=== PATIENT | female | born 1965 | race Caucasian/White ===

== ENCOUNTER 2022-02-03 07:57 | Outpatient (CLI) | payer BC, SELFPAY ==
[2022-02-03 14:03] LABS: Albumin* 4.3 g/dL (3.3-5.0)
[2022-02-03 14:04] LABS: Chloride* 108 mmol/L (96-114); Sodium* 139 mmol/L (135-149)
[2022-02-03 14:06] LABS: Aspartate Amino Transferase* 35 U/L (12-35); Bilirubin Total* 0.8 mg/dL (0.1-1.5); Carbon Dioxide* 27 mmol/L (20-32); Cholesterol* 220 mg/dL (90-199); Creatinine* 0.6 mg/dL (0.5-1.5); Estimated Glomerular Filt Rate 103 ml/min; Total Protein* 6.9 g/dL (6.0-8.3)
[2022-02-03 14:07] LABS: Alanine Aminotransferase* 25 U/L (4-35); Alkaline Phosphatase* 86 U/L (40-150); Blood Urea Nitrogen* 19 mg/dL (7-30); Calcium* 9.1 mg/dL (8.4-10.6); Glucose* 92 mg/dL (60-115); HDL Cholesterol* 52 mg/dL (>=50); LDL Cholesterol Calculated 147 mg/dL (<100); Triglycerides* 105 mg/dL (40-149)
== END 2022-02-03 07:58 | disposition home or self-care (01) ==
PROVIDERS: PCP Physician Assistant Medical; Visit Provider Family Medicine
DX: Z01.419 Encounter for gynecological examination (general) (routine) without abnormal findings (principal); Z13.6 Encounter for screening for cardiovascular disorders
CPT/HCPCS: 80053; 80061

== ENCOUNTER 2022-02-12 14:48 | Outpatient (CLI) | payer BC, SELFPAY ==
--- NOTE | 2022-02-12 15:00 | CRLHL7_ITS ---
For Patients: As a result of the Century Cures Act, medical imaging exams and procedure reports are released immediately into your electronic medical record. You may view this report before your referring provider. If you have questions, please contact your health care provider. INDICATION: Lung cancer screening. History of smoking. High risk patient with greater than 30 pack-year smoking history. TECHNIQUE: Low-dose lung cancer screening non-contrast CT chest. Dose reduction techniques were used. COMPARISON: None. FINDINGS: NODULES: 5.8 millimeter nodule right lower lobe, . Other smaller nodules measuring 2-3 millimeters are present elsewhere within the right lower lobe and right upper lobe. 2 millimeter nodule within the left lower lobe. LUNGS AND PLEURA: COPD/emphysema. No infiltrate or effusion. No edema or pneumothorax. MEDIASTINUM: Normal. CORONARY ARTERY CALCIFICATION: None. LIMITED UPPER ABDOMEN: Normal. MUSCULOSKELETAL: Normal. IMPRESSION: Small right-sided pulmonary nodules measuring up to 5.8 millimeters. LUNG-RADS CATEGORY: 2: Benign. RADIOLOGIST RECOMMENDATION: Continue annual screening with low-dose CT chest in 12 months. Please note that all CT scans at this facility use dose modulation, iterative reconstruction, and/or weight-based dosing when appropriate to reduce radiation dose to as low as reasonably achievable. Dictated by Dariel Chowdary MD @ 02/14/2022 10:16:44 AM (Electronically Signed)
== END 2022-02-12 14:49 | disposition home or self-care (01) ==
PROVIDERS: Visit Provider Family Medicine
DX: Z12.2 Encounter for screening for malignant neoplasm of respiratory organs (principal); R91.8 Other nonspecific abnormal finding of lung field
CPT/HCPCS: 71271

== ENCOUNTER 2022-11-29 08:57 | Outpatient (CLI) | payer BC, SELFPAY ==
--- NOTE | 2022-11-29 09:52 | W.ANESCHARGE ---
Anesthesia Charges Start Date/Time Anesthesia Start Date: 11/29/22 Anesthesia Start Time: 09:25 Stop Date/Time Anesthesia Stop Date: 11/29/22 Anesthesia Stop Time: 09:51
== END 2022-11-29 08:58 | disposition home or self-care (01) ==
LOC: OP CLINIC 08:57
PROVIDERS: PCP Physician Assistant Medical; Visit Provider Internal Medicine
DX: Z12.11 Encounter for screening for malignant neoplasm of colon (principal); K63.5 Polyp of colon; K57.30 Diverticulosis of large intestine without perforation or abscess without bleeding; K64.8 Other hemorrhoids
CPT/HCPCS: 00812; 45380; 88305; J2704

== ENCOUNTER 2022-12-16 06:05 | Day surgery (SDC) | payer BC, SELFPAY ==
[2022-12-16] VITALS (27 sets, daily range): BP systolic 70–118; BP diastolic 42–78; PULSE 50–66; RESP 12–18; TEMP 35.9–36.9; O2SAT 91–99; BMI 24.7
[2022-12-16] MEDS: LACTATED RINGERS 1000 ML 1,000 ML 100 ML IV (06:05)
[2022-12-16] MEDS: SODIUM CHLORIDE 0.9 % (FLUSH) 10 ML SYRINGE IVF (06:25)
--- NOTE | 2022-12-16 07:16 | W.PM.H&PU ---
History & Physical Update History & Physical Update H&P Reviewed and patient assessed: The following changes are noted below H&P Updates: Patient working on smoking cessation. Now down to 4-5 cigarettes per day. She was recently prescribed nicotine replacement. Declined nicotine replacement for this hospitalization for now. Would like to see if she can go a day without it.
[2022-12-16 07:32] LABS: Creatinine* 0.6 mg/dL (0.5-1.5); Est. Creatinine Clearance* 90.84; Estimated Glomerular Filt Rate 103 ml/min
--- NOTE | 2022-12-16 09:37 | P.NB_ITS ---
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 Images saved: Yes Medications given in 5ml increments after negative aspiration: Marcaine %: 0.25 mL: 30 Needle gauge: 20 and Exparel mL: 10 Patient tolerated procedure well: Yes Additional comments: Needle noted adjacent to nerve Block Charges Block Charge (with Pro Fee): TAP Bilateral Use of Ultrasound Machine for Block: Yes- US Guidance/pain block
--- NOTE | 2022-12-16 09:37 | W.ANESCHARGE ---
Anesthesia Charges Start Date/Time Anesthesia Start Date: 12/16/22 Anesthesia Start Time: 07:25 Stop Date/Time Anesthesia Stop Date: 12/16/22 Anesthesia Stop Time: 10:12
--- NOTE | 2022-12-16 10:11 | PM.GYNPRHY ---
Procedure Type of Hysterectomy: Total Laparoscopic Pre-op/Post-op diagnoses: Pre-Op/Post-Op Diagnoses Operation Date: 12/16/22 07:15 <No data on this case meets the specified criteria> Procedure: Procedures Operation Date: 12/16/22 07:15 Actual Procedure Side Surgeon p total Laparoscopic Hysterectomy, Bilateral Salping-Oopherectomy, Cystoscopy Promise Daugherty MD Anesthesia type: General Complications: none Fluids: crystalloid Fluid amount (mL): 900 Urine output (mL): 600 Weight of Uterus: 2.011 oz Specimen: uterus, left tube & ovary and right tube & ovary Disposition: floor Narrative: PREOPERATIVE DIAGNOSIS: Severe cervical dysplasia, RAPHAEL 3 - persistent POSTOPERATIVE DIAGNOSIS: Same TITLE OF OPERATION: 1. Total laparoscopic hysterectomy with bilateral salpingo-oophorectomy 2. 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 Cervix - minimal per previous exams. Adnexa without mass or fullness palpable. On laparoscopy: Normal uterus, bilateral ovaries. Overall fallopian tubes were normal appearing with discontinuity noted from previous tubal ligation. Appendix and liver all appeared normal. Gallbladder not visualized. Minimal filmy adhesions of colon to right pelvic side wall. On cystoscopy: Irritation from escalante cath noted but bladder was intact without sutures or defect in its entirety. Squamous metaplasia of the trigone noted. Bilateral ureteral jets were noted. COMPLICATIONS: None PROCEDURE IN DETAIL: Patient was taken to the operating room with IV running. She received vancomycin for preoperative prophylaxis due to penicillin allergy. She was positioned in dorsal lithotomy position with her legs fully supported in Yellofin stirrups. General anesthesia was administered. She was prepped and draped in the usual sterile fashion. Pelvic exam under anesthesia was performed for the above-noted findings. Escalante catheter was placed. Speculum was inserted. Cervix visualized and grasped along its anterior lip with a single-tooth tenaculum. Cervix was dilated with Hegar dilators to accommodate the Spokeableare uterine manipulator. A small-sized colpotomizer cup was selected. The tip of the uterine manipulator was inserted through the cervix into the uterine cavity and the balloon was inflated. The speculum was removed. The colpotomy cup was advanced, surrounding the cervix, and the proximal occluder was moved up along the shaft of the VCare and fixed in place. Patient's legs were then placed in neutral position. Attention was turned to patient's abdomen. Infraumbilical area was infiltrated with a small amount of 1% lidocaine with epi. A 5 mm infraumbilical incision was made with a scalpel and carried down to the underlying layer of fascia with the hemostat. 5 mm camera was placed within the 5 mm Fios Kii trocar, and advanced under direct visualization through the anterior abdominal wall into the peritoneal cavity, while tenting up the anterior abdominal wall. The trocar was removed. The balloon was inflated, holding the port in place. Pneumoperitoneum was achieved. Survey of the abdomen and pelvis revealed the above-noted findings. Three additional port sites were created. The first was in the patient's left lower quadrant, just superomedial to the left ASIS. The second was a hand's breadth superior to and slightly medial to the first. The third was in the patient's right lower quadrant, just superomedial to the right ASIS. A 5 mm incision was made at all sites, after assuring that large vessels were out of harm's way. All remaining 5 mm Fios Kii port was inserted under direct visualization and without complication. The balloon on each of the four ports was inflated, holding each in place. Attention was first turned to the left ovary, which was divided from the infundibulopelvic ligament, using the LigaSure bipolar cautery device, proceeding laterally to medially. Left Salpingectomy was performed at the same time with progressive ligation of the pedicles towards the uterine cornua. The left ovary and fallopian was kept attached to the uterine cornu to be removed with the uterus. This procedure was repeated on the patient's right side. The left round ligament was cauterized and transected with the LigaSure device. The bladder flap was created on the patient's left side, moving laterally to medially. The left uterine artery was cauterized and transected with the LigaSure device. Using the colpotomizer cup as a guide, the peritoneum and underlying stroma was dissected off the anticipated site of colpotomy over the posterior vaginal fornix. Attention was then turned to the right side of the uterus where these procedural steps were repeated. The bladder flap was created on the patient's right side, and dissection was carried laterally to medially, meeting the dissection where it had left off from the patient's right side. The right uterine artery was cauterized and transected with the LigaSure device. The bladder reflection was moved well below the colpotomizer cup anteriorly. The Ligasure Valleylab pen with the spatula attachment was then used to perform the colpotomy incising around the VCare cup. The uterus with attached bilateral ovaries and fallopian tubes were removed vaginally and sent to to pathology. The vaginal cuff was then reapproximated vaginally with 0-vicryl figure of eights. Speculum exam showed an intact cuff with no obvious active bleeding. All the pedicles and vaginal cuff were then closely visualized and hemostasis obtained with bipolar cautery using the LigaSure dissecting forceps or the Valleylab pen with the spatula. Barron was applied to the vaginal cuff intra-abdominally. The Escalante catheter was removed from the bladder, and the cystoscope was assembled with saline inflow, outflow, and light cord in place. The patient was given IV methylene blue prior to the cystoscopy. Cystoscope was advanced through the urethra into the bladder, and survey of the mucosa revealed a normal appearance. The bladder dome was intact. Bilateral ureteral jets were noted. Cystoscope was removed and Escalante catheter replaced. Patient's legs were again placed in neutral position. Insufflator was reattached to the port and pneumoperitoneum again achieved. Survey of the pelvis revealed hemostasis. Ports were left in place but all instruments were removed and pneumoperitoneum was released. After as much pneumoperitoneum was able to be released, the procedure was deemed complete. The balloons of all remaining port sites were deflated and removed. The skin of each port site was closed in a subcuticular fashion with 3-0 Monocryl. Exofin Surgical glue was applied at all port sites (4). Patient tolerated procedure well and was taken to recovery area in stable condition. Surgical debrief performed.
--- NOTE | 2022-12-16 10:16 | W.ANESCHARGE ---
Anesthesia Charges Start Date/Time Anesthesia Start Date: 12/16/22 Anesthesia Start Time: 07:25 Stop Date/Time Anesthesia Stop Date: 12/16/22 Anesthesia Stop Time: 10:12
[2022-12-16] MEDS: LACTATED RINGERS 1000 ML 1,000 ML 35 ML IV (10:31)
[2022-12-16] MEDS: 0.9 % SODIUM CHLORIDE 1000 ml 1,000 ML IV (13:01)
[2022-12-16] MEDS: IBUPROFEN 600 MG TABLET PO ×2 (14:03→19:51)
--- NOTE | 2022-12-16 18:49 | PC.NURSE ---
Patient s/p total hysterectomy with bilat ooph & cystectomy. Patient denies nausea but does report intermittent sharp pains in her pelvic region with movement. Patient declines needing any PRN pain meds thus far; she requests to have them prior to bedtime. Patient tolerating PO intake with no nausea. Blood pressure baseline 90s/60s but got as low as 60s/40s post-op. Patient asymptomatic no c/o lightheadedness or dizziness. Received TORB from Dr. Gonsalez to administer 1L NS bolus and BP slowly improved. Patient's family has been present at bedside and attentive to patient. Li patent & intact, draining clear green urine. Lap sites x4 in mid abdomen all CDI secured with dermabond. No drainage or bloody show on pad beneath patient. IVF LR @ 100 mL/hr continued d/t lower blood pressures initially - OK per Dr. Daugherty to finish bag then SL. Education provided on IS and splinting with increased abdominal pressure activities.
[2022-12-16] MEDS: DOCUSATE SODIUM 100 MG CAPSULE PO (20:36)
[2022-12-16] MEDS: OXYCODONE 5 MG TABLET PO (20:36)
--- NOTE | 2022-12-16 22:36 | PC.NURSE ---
Pt friendly and cooperative. Able to verbalize needs. BP's improved, low 100's systolically. Rates pain 1/10, scheduled Ibuprofen given and 5mg Oxycodone at HS. Li patent and draining clear/blue urine. Pt needing 1L/O2 via NC intermittently while watching TV this evening as SpO2 dipped to 87%. CPAP checked by RT and ready for use at bedside. Lap sites intact and well approximated.
[2022-12-17 00:35] VITALS: BP 115/69; PULSE 55; RESP 16; TEMP 36.7; O2SAT 95
[2022-12-17] MEDS: IBUPROFEN 600 MG TABLET PO ×2 (02:28→08:40)
[2022-12-17 02:30] VITALS: BP 106/75; PULSE 63; RESP 16; TEMP 36.6; O2SAT 95
--- NOTE | 2022-12-17 06:21 | PC.NURSE ---
Pt is alert and oriented x3. Afebrile. Pt reports 2/10 pain in abdomen, pain managed with scheduled medications. Pt denies chest pain, SOB and N/V. Pt has 4 lap sites that are open to air and CDI.?Li catheter was taken out around 0600. Pt has yet to urinate, reported to on coming nurse. Pt slept?throughout most of night. Night uneventful.??
[2022-12-17 06:29] LABS: Hemoglobin* 11.2 gm/dL (12.0-16.0)
[2022-12-17 07:17] LABS: Creatinine* 0.6 mg/dL (0.5-1.5); Est. Creatinine Clearance* 90.84; Estimated Glomerular Filt Rate 103 ml/min
[2022-12-17 08:30] VITALS: BP 96/45; PULSE 65; RESP 16; O2SAT 91
[2022-12-17] MEDS: CITALOPRAM HYDROBROMIDE 20 MG TABLET PO (08:40)
[2022-12-17] MEDS: ASPIRIN 81 MG TABLET EC PO (08:40)
--- NOTE | 2022-12-17 08:47 | PM.GYNDS1 ---
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 She had an uncomplicated surgery. Postoperative course has been uneventful. Vitals have been stable. She has remained afebrile. Today, on postoperative day 1, she reports the pain is well controlled. She has been able to ambulate Without difficulty. She is tolerating regular diet. She is passing flatus. Escalante catheter has been removed, and she is voiding without difficulty. Hospital Course: Hospital Course: Jenifer was admitted to the hospital on 12/16/2022 for a scheduled total laparoscopic hysterectomy with bilateral salpingo oophorectomy and diagnostic cystoscopy. Her surgery was uncomplicated. Her postoperative course was also uncomplicated. By postoperative day 1, she was tolerating a regular diet, ambulating without difficulty, passing flatus and pain was well controlled with oral pain medications. She would like to be discharged home today. Labs: Preoperative hemoglobin 14.0, postoperative hemoglobin 11.2. Objective: General: Alert and oriented x3. Pleasant, woman in no acute distress. Vital signs: See EMR. Heart: Regular rate and rhythm without gallop, rub or murmur. Chest: Clear to auscultation bilaterally. Abdomen: Soft, nontender, nondistended with normal bowel sounds throughout. No CVA or flank tenderness. Incision(s): Clean, dry and intact w/ sutures and skin adhesive. Pelvic: Minimal vaginal bleeding, remainder of pelvic exam deferred. Extremities: No pain, edema, cyanosis or clubbing. Assessment: 57 year-old postoperative day 1 from a TLH/BSO/diagnostic cystoscopy doing well. Plan: 1. Discharge home today. 2. Activity restrictions reviewed with the patient. 3. Return to clinic to see Dr. Daugherty for a postoperative visit in 2-3 weeks. 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 WORKER - DS: Data Data Completed and Pending Labs on day of discharge: Labs from last 24 hours 12/17/22 06:03 Hgb 11.2 L Creatinine 0.6 Estimated Creat Clear 90.84 Estimated GFR 103 Procedures Procedures: Procedures Operation Date: 12/16/22 07:15 Actual Procedure Side Surgeon p total Laparoscopic Hysterectomy, Bilateral Salping-Oopherectomy, Cystoscopy Promiseonur Daugherty MD Complications: none Discharge Plan Discharge Disposition: Home, Self-Care Discharging Surgeon: Kary Mathur Follow-Up Appointment: Postoperative visit in 2 weeks Prescriptions: New acetaminophen 325 mg Tablet 650 mg PO Q4H PRN (Reason: minor pain) 30 Days Qty: 90 0RF docusate sodium 100 mg Capsule 100 mg PO BID PRN (Reason: Constipation) 30 Days Qty: 30 0RF ibuprofen 600 mg Tablet 600 mg PO Q6H 30 Days Qty: 120 0RF simethicone 80 mg Tablet,Chewable 160 mg PO Q4H PRN (Reason: gas) 30 Days Qty: 30 0RF oxycodone 5 mg Tablet 5 mg PO Q6H PRN (Reason: Moderate Pain) 14 Days Qty: 20 0RF aspirin 81 mg Tablet,Delayed Release (Dr/Ec) 81 mg PO DAILY Qty: 300 0RF citalopram 20 mg Tablet 20 mg PO DAILY Qty: 90 0RF Continued Nicotrol 10 mg cartridge 1 inh inhalation Q2-4H PRN (Reason: nicotine cravings) Qty: 168 3RF aspirin 81 mg tablet,delayed release (DR/EC) 81 mg PO DAILY nicotine 14 mg/24 hr patch 24 hour 1 patch transdermal Q24H PRN citalopram 20 mg tablet 20 mg PO DAILY Nicotrol NS 10 mg/mL spray,non-aerosol 1 spray intranasal BID PRN (Reason: nicotine cravings) Rx Instructions: administer into each nostril Activity Level: No strenuous activity Activity Detail: Pelvic rest for 6-8 weeks Discharge Diet: Regular Patient Instructions: Acetaminophen (By mouth), Ibuprofen (By mouth), Aspirin (By mouth), Simethicone (By mouth), Laxative, Stool Softeners (By mouth), Oxycodone, Rapid Release (By mouth), Citalopram (By mouth), Surgical Site Infections (DC), Laparoscopic Hysterectomy (DC) Additional Instructions: LAPAROSCOPY POSTOPERATIVE INSTRUCTIONS ACTIVITY No heavy lifting/pushing/pulling for 4-6 weeks. Do not lift anything more than about 15 lbs (such as laundry, groceries, children, pets), vacuum, push heavy doors or grocery carts, etc. You may climb stairs as tolerated. Do not put anything in the vagina for 6-8 weeks after surgery unless otherwise instructed by your doctor (including tampons, douching, sexual intercourse, etc). No driving for about 2 weeks after surgery, while you are taking narcotic pain medication, or until you feel that you are ready. Practice checking your blind spot and stepping hard on the brake. Avoid sitting or lying in bed for more than 2 hours at a time while you are awake to reduce your risk of blood clots. You may return to work when directed by your physician. Please contact your doctor if you need any return to work letters or medical leave paperwork to be completed. WOUND CARE You will have 4 small incisions on your abdomen. There will be dissolvable stitches under your skin that do not need to be removed. Shower daily after surgery. Clean your incision with mild antibacterial soap and water. Pat your incision dry with a clean towel. No tub baths until wound is completely healed. Wash your hands frequently, especially before touching your incision, changing any dressings, after using the restroom, and before eating. PAIN MANAGEMENT Take your oral pain medication as needed. You should be taking Ibuprofen 600mg every 6 hours with 650 mg of Tylenol every 6 hours. You can take these together every six hours or alternate them every 3 hours. You should then take the oxycodone as needed if you have breakthrough pain on top of the Tylenol and Ibuprofen. Some pain medications can cause constipation so you should take a stool softener (i.e. colace/senna) while you are on these medications. You may also take milk of magnesia or Miralax for constipation. WHAT TO EXPECT AT HOME Recovery from surgery is generally 2-4 weeks, but sometimes longer for more strenuous activity. It is normal to be very tired during this time. It is normal to have some drainage or a small amount of vaginal bleeding after surgery which may last up to 6 weeks. You may go home with a escalante catheter in your bladder. If so, you will need to follow up for a nurse visit in 7-10 days for removal. You will most likely experience gas pain, abdominal swelling, or shoulder pain for 24-72 hours after surgery. This is from the carbon dioxide gas put into your abdomen to better visualize your organs. A warm shower, heating pad, and/or walking may help. WHEN TO CALL YOUR DOCTOR : Fever (>100.4?F or 38.0?C) or chills. Incision problems such as redness, warmth, swelling, or foul-smelling drainage. Severe nausea or persistent vomiting. Bright red vaginal bleeding (soaking >1 pad/hour) or foul-smelling vaginal drainage. Severe pain not relieved with pain medication. Pain and swelling in your legs, especially if it is only on one side and not the other. Pain with urination, cloudy urine, or foul-smelling urine. Or if you have any other problems or questions. CALL 911 OR GO TO THE EMERGENCY ROOM IF YOU HAVE: Any shortness of breath, difficulty breathing, or chest pain. Forms: Work/School Release Follow-up: Kendrick Monet PA-C [Primary Care Provider] - Promise Daugherty MD [Staff Physician] - 01/03/23 12:45 am ([facility] for postoperative follow-up.) Discharge Orders: Discharge Order (Routine); Ordered 12/17/22 Ordered By: Kary Mathur
--- NOTE | 2022-12-17 13:19 | PC.NURSE ---
Discharge Note: The patient discharged home with her significant other @ 1208.. she walked off of the unit. Prior to discharge her Iv was removed, all discharge teaching was completed regarding her hysterectomy as far as pain management goes, s/s of infection, and pain management options. She was also educated on gasx use and stool softeners if she takes narcotics. All medications were sent to the preferred pharmacy. Follow up appointment was made. Brittany AGUILA RN
== END 2022-12-17 12:08 | disposition home or self-care (01) ==
LOC: OR 06:06 → MEDSURG 06:10
PROVIDERS: PCP Physician Assistant Medical; Visit Provider Obstetrics & Gynecology
PROC: 0UT94ZZ Resection of Uterus, Percutaneous Endoscopic Approach (ICD-10-PCS; CPT 58571; principal; 2022-12-16 07:15)
DX: D06.9 Carcinoma in situ of cervix, unspecified (principal); G89.18 Other acute postprocedural pain; F17.210 Nicotine dependence, cigarettes, uncomplicated
CPT/HCPCS: 58571; 00840; 36415; 64488; 76942; 82565; 85018; 86850; 86900; 86901; 88309; 94761; A9270; J1100; J1170; J1885; J2405; J2704; J3010; J3370; J3490; J7030; J7120

== ENCOUNTER 2022-12-24 13:51 | Outpatient (CLI) | payer BC, SELFPAY ==
--- NOTE | 2022-12-24 14:00 | CRLHL7_ITS ---
For Patients: As a result of the Cures Act, medical imaging exams and procedure reports are released immediately into your electronic medical record. You may view this report before your referring provider. If you have questions, please contact your health care provider. BILATERAL SCREENING MAMMOGRAM WITH COMPUTER-AIDED DETECTION AND TOMOSYNTHESIS TECHNIQUE: CC and MLO views were obtained. These mammographic images have been obtained using full-field digital technique. These mammographic images were interpreted with the benefit of computer-aided detection. Breast Tomosynthesis was used in this interpretation. COMPARISON FILM: 06/12/21, 02/29/20, 02/16/17. FINDINGS: The breasts are heterogeneously dense, which may obscure small masses IMPRESSION: There is no radiographic evidence for malignancy. ASSESSMENT: BI-RADS Category 1: Negative RECOMMENDATION: Routine screening mammogram in 1 year. A lay language report of this examination will be provided to the patient. Dariel Chowdary M.D. Diagnostic Radiologist [email or web address] Transcribed: 12:48 p.mPatrick franklin/Dictated by: Dariel Chowdary MD @ 12/27/2022 9:53:00 AM (Electronically Signed)
== END 2022-12-24 13:52 | disposition home or self-care (01) ==
LOC: MAMMO 13:52
PROVIDERS: PCP Physician Assistant Medical; Visit Provider Family Medicine
DX: Z12.31 Encounter for screening mammogram for malignant neoplasm of breast (principal); R92.2 Inconclusive mammogram
CPT/HCPCS: 77063; 77067

== ENCOUNTER 2023-11-11 14:48 | Outpatient (CLI) | payer BC, SELFPAY | END 2023-11-11 14:49 | disposition home or self-care (01) | LOC: NFLDREF 11-15 09:58 | PROVIDERS: PCP Family Medicine; Referring Provider Family Medicine; Visit Provider Physician Assistant | DX: R39.15 Urgency of urination (principal) | CPT/HCPCS: 87086; 87186 ==

== ENCOUNTER 2024-01-09 07:50 | Outpatient (CLI) | payer BC, SELFPAY ==
--- NOTE | 2024-01-09 07:45 | CRLHL7_ITS ---
For Patients: As a result of the Century Cures Act, medical imaging exams and procedure reports are released immediately into your electronic medical record. You may view this report before your referring provider. If you have questions, please contact your health care provider. BILATERAL SCREENING MAMMOGRAM WITH COMPUTER-AIDED DETECTION AND TOMOSYNTHESIS TECHNIQUE: CC and MLO views were obtained. These mammographic images have been obtained using full-field digital technique. These mammographic images were interpreted with the benefit of computer-aided detection. Breast Tomosynthesis was used in this interpretation. COMPARISON FILM: 12/24/22, 06/12/21, 02/29/20. FINDINGS: There are scattered areas of fibroglandular density. IMPRESSION: There is no radiographic evidence for malignancy. ASSESSMENT: BI-RADS Category 2: Benign RECOMMENDATION: Routine screening mammogram in 1 year. A lay language report of this examination will be provided to the patient. Dariel Chowdary M.D. Diagnostic Radiologist [email or web address] SP/Dictated by: Dariel Chowdary MD @ 01/11/2024 10:15:00 AM (Electronically Signed)
== END 2024-01-09 07:51 | disposition home or self-care (01) ==
PROVIDERS: PCP Family Medicine; Visit Provider Family Medicine
DX: Z12.31 Encounter for screening mammogram for malignant neoplasm of breast (principal)
CPT/HCPCS: 77063; 77067

== ENCOUNTER 2024-03-09 14:03 | Outpatient (CLI) | payer BC, SELFPAY ==
[2024-03-12 15:20] LABS: HPV, High Risk by TMA Detected
[2024-03-13 10:36] LABS: HPV Genotype 16 by TMA Not Detected; HPV Genotype 18/45 by TMA Not Detected
[2024-03-19 15:31] LABS: Pap Test Reviewed by Path Done
== END 2024-03-09 14:04 | disposition home or self-care (01) ==
PROVIDERS: PCP Family Medicine; Visit Provider Obstetrics & Gynecology
DX: Z12.4 Encounter for screening for malignant neoplasm of cervix (principal); Z11.51 Encounter for screening for human papillomavirus (HPV)
CPT/HCPCS: 87624; 87625; 88141; 88142

== ENCOUNTER 2024-03-29 08:05 | Outpatient (CLI) | payer BC, SELFPAY | END 2024-03-29 08:06 | disposition home or self-care (01) | LOC: NFLDREF 04-02 18:48 | PROVIDERS: PCP Family Medicine; Referring Provider Family Medicine; Visit Provider Obstetrics & Gynecology | DX: Z13.6 Encounter for screening for cardiovascular disorders (principal) | CPT/HCPCS: 80061 ==